=== PATIENT | male | born 1955 | race Caucasian/White ===

== ENCOUNTER 2017-12-09 20:36 | Emergency (ER) | payer MEDICARE, OTHER ==
[~2017-12-09] VITALS: Ht 170.2 cm; Wt 90.7 kg
[2017-12-09 21:55] LABS: BASO # 0.1 x10^3/uL (0.0-0.2); BASO % 1 % (0-3); EOS # 0.2 x10^3/uL (0.0-0.7); EOS % 2 % (0-3); HEMATOCRIT 39.2 % (39.0-53.0); HEMOGLOBIN 13.8 g/dL (13.0-17.5); LYMPH # 2.6 x10^3/uL (1.0-4.8); LYMPH % 28 % (24-48); MEAN CORPUSCULAR HEMOGLOBIN 34 pg (25-35); MEAN CORPUSCULAR HGB CONC 35 g/dL (31-37); MEAN CORPUSCULAR VOLUME 96 fL (79-100); MONO # 1.2 x10^3/uL (0.0-1.1); MONO % 13 % (0-9); NEUT # 5.2 x10^3uL (1.8-7.7); NEUT % 56 % (31-73); PLATELET COUNT 166 x10^3/uL (140-400); RED BLOOD COUNT 4.09 x10^6/uL (4.30-5.70); RED CELL DISTRIBUTION WIDTH 13.1 % (11.5-14.5); WHITE BLOOD COUNT 9.3 x10^3/uL (4.0-11.0)
[2017-12-09 22:01] LABS: BILIRUBIN,URINE NEGATIVE (NEG); CLARITY,URINE CLEAR; COLOR,URINE YELLOW; NITRITE,URINE NEGATIVE (NEG); PROTEIN,URINE NEGATIVE (NEG-TRACE); UROBILINOGEN,URINE 0.2 mg/dL (0.2 mg/dL)
[2017-12-09 22:09] LABS: BACTERIA,URINE 0 /HPF (0-FEW); RBC,URINE 0 /HPF (0-2); SQUAMOUS EPITHELIAL CELL,UR FEW /LPF; WBC,URINE 0 /HPF (0-4)
--- NOTE | 2017-12-09 22:15 | RAD ---
AP portable chest radiograph 12/09/2017 Clinical History: Shortness of breath. An AP erect portable digital radiograph of the chest was obtained. Comparison study is dated 12/07/2014. The patient is post median sternotomy. A pacemaker is unchanged in position. The cardiac silhouette is mildly enlarged. The thoracic aorta is minimally tortuous. Atherosclerotic calcification of the thoracic aorta is seen. No acute pulmonary infiltrate is noted. No pneumothorax or pleural effusion is seen. Degenerative changes are seen involving the thoracic spine. Impression: No acute abnormality is seen. Electronically signed by: Anurag Gonzalez MD (12/09/2017 10:12 PM) [facility]
[2017-12-09 22:22] LABS: ALBUMIN 3.5 g/dL (3.4-5.0); CALCIUM 9.3 mg/dL (8.5-10.1); CREATININE 1.7 mg/dL (0.7-1.3); GFR 41.2; POTASSIUM 4.4 mmol/L (3.5-5.1); TOTAL BILIRUBIN 0.3 mg/dL (0.2-1.0); TOTAL PROTEIN 7.1 g/dL (6.4-8.2)
[2017-12-09 22:30] VITALS: BP 119/61
--- NOTE | 2017-12-09 22:31 | PHYS DOC ---
Past Medical History Past Medical History: CHF, CVA, Diabetes-Type II, [place], TIA, Other Additional Past Medical Histor: HAS RISIDUAL LEFT FACIAL/ARM/LEG WEAKNESS FROM CVA Past Surgical History: Coronary Bypass Surgery, Other Additional Past Surgical Histo: L CAROTID, PACEMAKER/DEFIB Alcohol Use: None Drug Use: None Adult General Chief Complaint Chief Complaint: LOWER EXTREMITY EDEMA [facility] HPI Patient is a 62 year old [f__sex] who presents with [] Review of Systems Review of Systems Constitutional: Denies fever or chills [] Eyes: Denies change in visual acuity, redness, or eye pain [] HENT: Denies nasal congestion or sore throat [] Respiratory: Denies cough or shortness of breath [] Cardiovascular: No additional information not addressed in HPI [] GI: Denies abdominal pain, nausea, vomiting, bloody stools or diarrhea [] : Denies dysuria or hematuria [] Musculoskeletal: Denies back pain or joint pain [] Integument: Denies rash or skin lesions [] Neurologic: Denies headache, focal weakness or sensory changes [] Endocrine: Denies polyuria or polydipsia [] All other systems were reviewed and found to be within normal limits, except as documented in this note. Allergies Allergies Allergies Coded Allergies Type Severity Reaction Last Updated Verified No Known Drug Allergies 12/09/17 No Physical Exam Physical Exam Constitutional: Well developed, well nourished, no acute distress, non-toxic appearance. [] HENT: Normocephalic, atraumatic, bilateral external ears normal, oropharynx moist, no oral exudates, nose normal. [] Eyes: PERRLA, EOMI, conjunctiva normal, no discharge. [] Neck: Normal range of motion, no tenderness, supple, no stridor. [] Cardiovascular:Heart rate regular rhythm, no murmur [] Lungs & Thorax: Bilateral breath sounds clear to auscultation [] Abdomen: Bowel sounds normal, soft, no tenderness, no masses, no pulsatile masses. [] Skin: Warm, dry, no erythema, no rash. [] Back: No tenderness, no CVA tenderness. [] Extremities: No tenderness, no cyanosis, no clubbing, ROM intact, no edema. [] Neurologic: Alert and oriented X 3, normal motor function, normal sensory function, no focal deficits noted. [] Psychologic: Affect normal, judgement normal, mood normal. [] Current Patient Data Vital Signs Vital Signs Date Time Temp Pulse Resp B/P (MAP) Pulse Ox O2 Delivery O2 Flow Rate FiO2 12/09/17 21:30 69 19 123/60 (81) 95 Room Air 12/09/17 20:40 97.9 97.9 Lab Values Laboratory Tests Test 12/09/17 21:36 12/09/17 21:50 White Blood Count 9.3 x10^3/uL (4.0-11.0) Red Blood Count 4.09 x10^6/uL (4.30-5.70) L Hemoglobin 13.8 g/dL (13.0-17.5) Hematocrit 39.2 % (39.0-53.0) Mean Corpuscular Volume 96 fL (79-100) Mean Corpuscular Hemoglobin 34 pg (25-35) Mean Corpuscular Hemoglobin Concent 35 g/dL (31-37) Red Cell Distribution Width 13.1 % (11.5-14.5) Platelet Count 166 x10^3/uL (140-400) Neutrophils (%) (Auto) 56 % (31-73) Lymphocytes (%) (Auto) 28 % (24-48) Monocytes (%) (Auto) 13 % (0-9) H Eosinophils (%) (Auto) 2 % (0-3) Basophils (%) (Auto) 1 % (0-3) Neutrophils # (Auto) 5.2 x10^3uL (1.8-7.7) Lymphocytes # (Auto) 2.6 x10^3/uL (1.0-4.8) Monocytes # (Auto) 1.2 x10^3/uL (0.0-1.1) H Eosinophils # (Auto) 0.2 x10^3/uL (0.0-0.7) Basophils # (Auto) 0.1 x10^3/uL (0.0-0.2) Sodium Level 140 mmol/L (136-145) Potassium Level 4.4 mmol/L (3.5-5.1) Chloride Level 103 mmol/L (98-107) Carbon Dioxide Level 27 mmol/L (21-32) Anion Gap 10 (6-14) Blood Urea Nitrogen 37 mg/dL (8-26) H Creatinine 1.7 mg/dL (0.7-1.3) H Estimated GFR (Cockcroft-Gault) 41.2 BUN/Creatinine Ratio 22 (6-20) H Glucose Level 154 mg/dL (70-99) H Calcium Level 9.3 mg/dL (8.5-10.1) Total Bilirubin 0.3 mg/dL (0.2-1.0) Aspartate Amino Transferase (AST) 11 U/L (15-37) L Alanine Aminotransferase (ALT) 20 U/L (16-63) Alkaline Phosphatase 106 U/L (46-116) Troponin I Quantitative < 0.017 ng/mL (0.000-0.055) FL-Gvq-U-Type Natriuretic Peptide 447 pg/mL (0-124) H Total Protein 7.1 g/dL (6.4-8.2) Albumin 3.5 g/dL (3.4-5.0) Albumin/Globulin Ratio 1.0 (1.0-1.7) Urine Collection Type Unknown Urine Color Yellow Urine Clarity Clear Urine pH 6.0 Urine Specific [place] 1.010 Urine Protein Negative mg/dL (NEG-TRACE) Urine Glucose (UA) Negative mg/dL (NEG) Urine Ketones (Stick) Negative mg/dL (NEG) Urine Blood Negative (NEG) Urine Nitrite Negative (NEG) Urine Bilirubin Negative (NEG) Urine Urobilinogen Dipstick 0.2 mg/dL (0.2 mg/dL) Urine Leukocyte Esterase Negative (NEG) Urine RBC 0 /HPF (0-2) Urine WBC 0 /HPF (0-4) Urine Squamous Epithelial Cells Few /LPF Urine Bacteria 0 /HPF (0-FEW) Laboratory Tests 12/09/17 21:36 Laboratory Tests 12/09/17 21:36 EKG EKG [] Radiology/Procedures Radiology/Procedures []PATIENT: KEVIN BOOKERACCOUNT: [id number]#: [id number] : 1955 LOCATION: ER AGE: 62 SEX: M EXAM STATUS: REG ER ORD. PHYSICIAN: PERNELL BOLAND APRN REASON: soa, edema PROCEDURE: CHEST AP ONLY AP portable chest radiograph 12/09/2017 Clinical History: Shortness of breath. An AP erect portable digital radiograph of the chest was obtained. Comparison study is dated 12/07/2014. The patient is post median sternotomy. A pacemaker is unchanged in position. The cardiac silhouette is mildly enlarged. The thoracic aorta is minimally tortuous. Atherosclerotic calcification of the thoracic aorta is seen. No acute pulmonary infiltrate is noted. No pneumothorax or pleural effusion is seen. Degenerative changes are seen involving the thoracic spine. Impression: No acute abnormality is seen. Electronically signed by: Anurag Gonzalez MD (12/09/2017 10:12 PM) [employer] DICTATED and SIGNED BY: ANURAG GONZALEZ MD DATE: 12/09/17 8922 Course & Med Decision Making Course & Med Decision Making Pertinent Labs and Imaging studies reviewed. (See chart for details) [] Dragon Disclaimer Dragon Disclaimer This electronic medical record was generated, in whole or in part, using a voice recognition dictation system. Departure Departure Impression: Primary Impression: Dependent edema Disposition: 01 HOME, SELF-CARE Condition: STABLE Referrals: KELSIE THAYER (PCP) Patient Instructions: Peripheral Edema Additional Instructions: Continue your at home medications. Follow-up with your primary care provider for further evaluation in 3 days if you're diuretic is not relieving your edema. Return to the emergency department if worsening. PERNELL BOLAND APRN Dec 09, 2017 22:31
--- NOTE | 2017-12-10 06:23 | EKG ---
[facility] [address] [place] [address] Test Date: 2017-12-09 Test Time: 21:27:20 Pat Name: KEVIN BOOKER Department: Room: Gender: M [employer]st: : 1955 Requested By: PERNELL BOLAND Order Number: [id number] Reading MD: Atul De Leon Measurements Intervals [place] Rate: 70 P: 61 [place]: 124 QRS: -153 QRSD: 160 T: 121 QT: 474 QTc: 515 Interpretive Statements ATRIAL SENSED VENTRICULAR PACED RHYTHM Electronically Signed On 12-14-2017 10:38:34 CDT by Atul De Leon
== END 2017-12-09 22:50 | disposition home or self-care (01) ==
LOC: ER 20:36
DX: R60.0 Localized edema (principal); I50.9 Heart failure, unspecified; E11.9 Type 2 diabetes mellitus without complications; Z86.73 Personal history of transient ischemic attack (TIA), and cerebral infarction without residual deficits; Z95.1 Presence of aortocoronary bypass graft; Z95.0 Presence of cardiac pacemaker
CPT/HCPCS: 36415; 71045; 80053; 81001; 83880; 84484; 85025; 93005; 99285-25